=== PATIENT | male | born 1940 | race Caucasian/White ===

== ENCOUNTER 2024-10-19 09:29 | Outpatient (CLI) | payer MEDICARE, BC | END 2024-10-19 09:30 | disposition home or self-care (01) | LOC: BICMAMMO 09:29 | PROVIDERS: ATTEND Internal Medicine | DX: Z13.820 Encounter for screening for osteoporosis (principal); M81.0 Age-related osteoporosis without current pathological fracture | CPT/HCPCS: 77080 ==